=== PATIENT | male | born 1985 | race Caucasian/White ===

== ENCOUNTER 2021-01-06 04:50 | Emergency (ER) | payer SELFPAY ==
[2021-01-06] MEDS ORDERED: Albuterol 200 PUFF (6.7GM INHALER) ONE (05:06)
[2021-01-06 05:49] LABS: #Lymphocytes 0.8 thou/uL (1.20-3.40); #Monocytes 0.3 thou/uL (0.11-0.59); #Neutrophils 1.9 thou/uL (1.40-6.50); %Basophils 0.2 % (0.0-1.0); %Eosinophils 0.1 % (0.0-10.0); %Lymphocytes 26.2 % (21.0-51.0); %Monocytes 9.5 % (0.0-10.0); Hemoglobin 14.6 g/dL (14.0-18.0); Mean Corpuscular HGB CONC 31.5 g/dL (32.0-36.0); Mean Corpuscular Hemoglobin 26.3 pg (27.0-31.0); Mean Corpuscular Volume 83.5 fL (78.0-98.0); Mean Platelet Volume 9.2 fL (7.4-10.4); Platelet Count 203 thou/uL (130-400); RBC Distribution Width 12.8 % (11.5-14.5); Red Blood Cell (RBC) Count 5.56 mill/uL (4.70-6.10)
[2021-01-06 06:17] LABS: ALT (SGPT) 49 U/L (8-55); AST (SGOT) 56 U/L (5-34); Albumin 3.6 g/dL (3.5-5.0); Alkaline Phosphatase 61 U/L (40-110); Anion Gap 14 mmol/L (10-20); BUN (Urea Nitrogen) 12 mg/dL (8.9-20.6); Bilirubin, Total 0.8 mg/dL (0.2-1.2); Calc. Creatinine Clearance 0 mL/min (70-130); Calcium 8.6 mg/dL (7.8-10.44); Carbon Dioxide 22 mmol/L (22-29); Chloride 106 mmol/L (98-107); Globulin 3.6 g/dL (2.4-3.5); Glucose 137 mg/dL (70-105); Potassium 4.7 mmol/L (3.5-5.1); Protein, Total 7.2 g/dL (6.0-8.3); Sodium 137 mmol/L (136-145)
[2021-01-06] MEDS ORDERED: Iopamidol-370 76% 500 ML 1 ML ONE (10:07)
== END 2021-01-06 07:05 | disposition home or self-care (01) ==
LOC: ERS 04:50
DX: U07.1 COVID-19 (principal); J12.82 Pneumonia due to coronavirus disease 2019; F17.210 Nicotine dependence, cigarettes, uncomplicated
CPT/HCPCS: 71045; 71275; 80053; 85025; 85379; 94760

== ENCOUNTER 2023-02-22 07:41 | Emergency (ER) | payer SELFPAY ==
[2023-02-22 08:10] LABS: CAUTI Indications for Culture Pelvic or flank pain
[2023-02-22 08:18] LABS: #Basophils 0.1 thou/uL (0.0-0.2); #Monocytes 0.6 thou/uL (0.11-0.59); #Neutrophils 6.5 thou/uL (1.40-6.50); %Basophils 0.9 % (0.0-1.0); %Eosinophils 0.4 % (0.0-10.0); %Monocytes 6.2 % (0.0-10.0); %Neutrophils 70.3 % (42.0-75.0); Hematocrit 48.3 % (42.0-52.0); Hemoglobin 15.7 g/dL (14.0-18.0); Mean Corpuscular HGB CONC 32.5 g/dL (32.0-36.0); Mean Corpuscular Hemoglobin 26.8 pg (27.0-31.0); Mean Corpuscular Volume 82.4 fl (78.0-98.0); Mean Platelet Volume 11.9 fL (7.4-10.4); Platelet Count 218 10x3/uL (130-400); RBC Distribution Width 13.8 % (11.5-14.5); Red Blood Cell (RBC) Count 5.86 mill/uL (4.70-6.10); White Blood Cell (WBC) Count 9.2 10x3/uL (4.8-10.8)
[2023-02-22 08:28] LABS: Clarity Hazy (Clear)
[2023-02-22 08:29] LABS: Leukocyte Unable to Interpret (Negative); Nitrite Unable to Interpret (Negative); Protein, Urine (Dipstick) Unable to Interpret mg/dL (Neg-Trace); pH, Urine 5.5 (5.0-9.0)
[2023-02-22 08:33] LABS: Bilirubin Unable to Interpret (Negative); Blood, Urine Unable to Interpret (Negative); Glucose, Urine (Dipstick) Unable to Interpret mg/dL (Negative); Ketone, Urine Unable to Interpret mg/dL (Negative); Urobilinogen UNABLE TO INTERPRET mg/dL (Less than 2)
[2023-02-22 08:35] LABS: Bacteria/HPF 1+ HPF (None Seen); Squamous Epithelial 0-3 HPF (0-3); WBC/HPF 0-3 HPF (0-3)
[2023-02-22 08:36] LABS: Calcium Oxalate Crystals 2+ HPF (None Seen); Urine Culture Reflex No No
[2023-02-22 08:44] LABS: ALT (SGPT) 48 U/L (8-55); AST (SGOT) 30 U/L (5-34); Albumin 4.9 g/dL (3.5-5.0); Alkaline Phosphatase 100 U/L (40-110); Anion Gap 16 mmol/L (10-20); BUN (Urea Nitrogen) 16 mg/dL (8.9-20.6); Bilirubin, Total 0.5 mg/dL (0.2-1.2); Calc. Creatinine Clearance 0 mL/min (70-130); Calcium 9.9 mg/dL (7.8-10.44); Carbon Dioxide 23 mmol/L (22-29); Chloride 103 mmol/L (98-107); Estimated GFR 56; Globulin 3.4 g/dL (2.4-3.5); Glucose 212 mg/dL (70-105); Lipase 37 U/L (8-78); Potassium 4.8 mmol/L (3.5-5.1); Protein, Total 8.3 g/dL (6.0-8.3); Sodium 137 mmol/L (136-145)
[2023-02-22] MEDS ORDERED: Ketorolac Tromethamine 30 MG/ML VIAL ONE (08:58)
[2023-02-22] MEDS ORDERED: Morphine 4 MG/ML VIAL ONE (08:58)
[2023-02-22] MEDS ORDERED: Ondansetron PF 4 MG/2 ML Vial ONE (08:59)
[2023-02-22] MEDS ORDERED: Iopamidol-370 76% 500 ML MDV (1 ML CHARGE) ONE (11:44)
== END 2023-02-22 11:00 | disposition home or self-care (01) ==
LOC: ERS 07:41
DX: N13.2 Hydronephrosis with renal and ureteral calculous obstruction (principal); F17.220 Nicotine dependence, chewing tobacco, uncomplicated
CPT/HCPCS: 36415; 74177; 80053; 81001; 83690; 85025; 96361; 96374; 96375; J1885; J2270; J2405; Q9967